=== PATIENT | female | born 1975 | race Caucasian/White ===

== ENCOUNTER 2020-04-19 11:59 | Emergency (ER) | payer BC ==
[~2020-04-19] VITALS: Ht 160 cm; Wt 90.7 kg
[2020-04-19 12:15] VITALS: BP_SYST 119
[2020-04-19] MEDS ORDERED: MORPHINE 4 MG/ML INJ. SYRINGE IVP ONE (13:30)
[2020-04-19] MEDS ORDERED: ONDANSETRON HCL 4 MG/2 ML VIAL IVP ONE (13:30)
[2020-04-19] MEDS ORDERED: NACL 0.9% 1,000 ML IV ONE (13:30)
[2020-04-19 14:24] LABS: BASOPHILS # (AUTO) 0.1 K/uL (0.0-0.2); BASOPHILS % (AUTO) 0.7 % (0.0-2.0); EOSINOPHILS # (AUTO) 0.2 K/uL (0.0-0.4); EOSINOPHILS % (AUTO) 2.2 % (0.0-4.0); HEMATOCRIT 40.2 % (36-48); HEMOGLOBIN 13.8 g/dL (12.0-16.0); LYMPHOCYTES # (AUTO) 2.7 K/uL (1.0-5.5); LYMPHOCYTES % (AUTO) 36.2 % (20.5-51.5); MEAN CORPUSCULAR HEMOGLOBIN 30 pg (27-31); MEAN CORPUSCULAR HGB CONC 34 % (32-36); MEAN CORPUSCULAR VOLUME 88 fL (79.0-98.0); MONOCYTES # (AUTO) 0.7 K/uL (0.0-1.0); MONOCYTES % (AUTO) 9.3 % (1.7-9.3); NEUTROPHILS # (AUTO) 3.9 K/uL (1.8-7.7); NEUTROPHILS % (AUTO) 51.6 % (40.0-70.0); PLATELET COUNT (AUTO) 286 K/uL (130-430); RED BLOOD CELL COUNT(AUTO) 4.58 MIL/uL (4.2-6.2); RED CELL DISTRIBUTION WIDTH 13.9 % (9.0-15.0); WHITE BLOOD COUNT (AUTO) 7.5 K/uL (4.8-10.8)
[2020-04-19 14:52] LABS: ALBUMIN 3.9 g/dL (3.4-4.8); CALCIUM 9.3 mg/dL (8.4-11.0); CREATININE 0.88 mg/dL (0.55-1.30); POTASSIUM 3.3 mmol/L (3.5-5.1); TOTAL BILIRUBIN 0.3 mg/dL (0.0-1.0)
[2020-04-19 14:59] LABS: BILIRUBIN,URINE NEGATIVE (NEGATIVE); BLOOD, URINE NEGATIVE (NEGATIVE); CLARITY/URINE SL CLOUDY (CLEAR); COLOR,URINE YELLOW (YELLOW); GLUCOSE,URINE NEGATIVE (NEGATIVE); KETONES,URINE NEGATIVE (NEGATIVE); LEUKOCYTE ESTERASE ,URINE NEGATIVE (NEGATIVE); NITRITE, URINE NEGATIVE (NEGATIVE); PROTEIN URINE NEGATIVE (NEGATIVE); UROBILINOGEN,URINE 0.2 (0.2-1.0)
[2020-04-19] MEDS ORDERED: MAG HYDROX/AL HYDROX/SIMETH 30 ML, DICYCLOMINE HCL 20 MG, LIDOCAINE VISCOUS 2% 15ML (PO... PO ONE ×3 (15:15)
[2020-04-19] MEDS ORDERED: KETOROLAC TROMETHAMINE 30 MG VIAL IVP ONE (15:15)
[2020-04-19 15:24] LABS: BACTERIA,URINE None Seen /HPF (None Seen); RBC,URINE 0-3 /HPF (0-3); WBC,URINE 0-3 /HPF (0-3)
[2020-04-19] MEDS ORDERED: PRO40 PO (16:46)
[2020-04-19 17:48] VITALS: BP_SYST 118
== END 2020-04-19 17:48 | disposition home or self-care (01) ==
LOC: SED 11:59
DX: R10.12 Left upper quadrant pain (principal)
CPT/HCPCS: 36415; 74176; 80053; 81000; 81025; 83690; 85025; 96361; 96374; 96375; 99284; J1885; J2001; J2270; J2405; J7030

== ENCOUNTER 2020-10-14 10:31 | Emergency (ER) | payer BC ==
[~2020-10-14] VITALS: Ht 160 cm; Wt 90.7 kg
[~2020-10-14 10:31] MED LIST: PRO40 PO
[2020-10-14 10:47] VITALS: BP_SYST 11
[2020-10-14] MEDS ORDERED: IBUP-1969 PO (13:34)
[2020-10-14] MEDS ORDERED: HYDR-3917 PO (13:34)
[2020-10-14 13:47] VITALS: BP_SYST 11
== END 2020-10-14 13:47 | disposition home or self-care (01) ==
LOC: SED 10:31
DX: S60.221A Contusion of right hand, initial encounter (principal); I10 Essential (primary) hypertension; K21.9 Gastro-esophageal reflux disease without esophagitis; Z79.899 Other long term (current) drug therapy; W22.8XXA Striking against or struck by other objects, initial encounter; Y93.89 Activity, other specified; Y92.89 Other specified places as the place of occurrence of the external cause; Y99.8 Other external cause status
CPT/HCPCS: 99283

== ENCOUNTER 2021-08-09 11:13 | Emergency (ER) | payer BC ==
[~2021-08-09] VITALS: Ht 160 cm; Wt 95.3 kg
[~2021-08-09 11:13] MED LIST changes: +HYDR-3917 PO; +IBUP-1969 PO
--- NOTE | 2021-08-09 11:19 | NUR ---
DR DAMON IN TENT FOR EXAM.
--- NOTE | 2021-08-09 11:23 | NUR ---
Patient is complaining of 3 days of cough congestion sore throat over the last 3 days she states that she has been vaccinated however she suspects COVID infection and says she has been around friends who tested positive patient denies phlegm production or difficulty breathing also denies history of asthma.
[2021-08-09 11:24] VITALS: BP_SYST 105
[2021-08-09] MEDS ORDERED: NIRM1TAB PO (12:06)
[2021-08-09] MEDS ORDERED: IBUP-1969 PO (12:06)
--- NOTE | 2021-08-09 12:26 | NUR ---
Patient given written and verbal discharge instructions and verbalizes understanding. ER MD discussed with patient the results and treatment provided. Patient in stable condition. ID arm band removed. Rx of ibu[rofen, nirmatrelvir, ritonavir given. Patient educated on pain management and to follow up with PMD. Pain Scale . Opportunity for questions provided and answered. Medication side effect fact sheet provided.
[2021-08-09 12:43] VITALS: BP_SYST 122
== END 2021-08-09 12:26 | disposition home or self-care (01) ==
LOC: SED 11:13
DX: U07.1 COVID-19 (principal); J40 Bronchitis, not specified as acute or chronic; R05.9 Cough, unspecified; R09.81 Nasal congestion; I10 Essential (primary) hypertension; K21.9 Gastro-esophageal reflux disease without esophagitis; Z79.899 Other long term (current) drug therapy
CPT/HCPCS: 36415; 71045; 99284

== ENCOUNTER 2022-09-10 09:17 | Emergency (ER) | payer BC ==
[~2022-09-10] VITALS: Ht 160 cm; Wt 98.9 kg
[2022-09-10 09:17] VITALS: BP_SYST 122; PULSE 77; RESP 18; TEMP 97.8; O2SAT 98
[~2022-09-10 09:17] MED LIST changes: +NIRM1TAB PO
[2022-09-10] MEDS ORDERED: KETOROLAC TROMETHAMINE 30 MG VIAL IVP ONE (10:00)
[2022-09-10] MEDS ORDERED: NACL 0.9% 1,000 ML IV ONE (10:00)
[2022-09-10 10:16] LABS: BASOPHILS # (AUTO) 0.1 K/uL (0.0-0.2); BASOPHILS % (AUTO) 0.9 % (0.0-2.0); EOSINOPHILS # (AUTO) 0.2 K/uL (0.0-0.4); EOSINOPHILS % (AUTO) 2.7 % (0.0-4.0); HEMATOCRIT 38.4 % (36-48); HEMOGLOBIN 13.1 g/dL (12.0-16.0); LYMPHOCYTES # (AUTO) 2.2 K/uL (1.0-5.5); LYMPHOCYTES % (AUTO) 30.7 % (20.5-51.5); MEAN CORPUSCULAR HEMOGLOBIN 30 pg (27-31); MEAN CORPUSCULAR HGB CONC 34 % (32-36); MEAN CORPUSCULAR VOLUME 88 fL (79.0-98.0); MONOCYTES # (AUTO) 0.7 K/uL (0.0-1.0); MONOCYTES % (AUTO) 9.3 % (1.7-9.3); NEUTROPHILS # (AUTO) 4.1 K/uL (1.8-7.7); NEUTROPHILS % (AUTO) 56.4 % (40.0-70.0); PLATELET COUNT (AUTO) 279 K/uL (130-430); RED BLOOD CELL COUNT(AUTO) 4.35 MIL/uL (4.2-6.2); WHITE BLOOD COUNT (AUTO) 7.3 K/uL (4.8-10.8)
[2022-09-10 10:32] LABS: CALCIUM 8.8 mg/dL (8.4-11.0); CREATININE 0.75 mg/dL (0.55-1.30)
[2022-09-10 10:36] LABS: ALBUMIN 3.6 g/dL (3.4-4.8); TOTAL BILIRUBIN 0.5 mg/dL (0.0-1.0)
[2022-09-10 11:17] LABS: BILIRUBIN,URINE NEGATIVE (NEGATIVE); BLOOD, URINE NEGATIVE (NEGATIVE); CLARITY/URINE CLEAR (CLEAR); COLOR,URINE YELLOW (YELLOW); GLUCOSE,URINE NEGATIVE (NEGATIVE); KETONES,URINE NEGATIVE (NEGATIVE); LEUKOCYTE ESTERASE ,URINE NEGATIVE (NEGATIVE); NITRITE, URINE NEGATIVE (NEGATIVE); PH,URINE 6.5 (5.0-8.0); PROTEIN URINE NEGATIVE (NEGATIVE); UROBILINOGEN,URINE 0.2 (0.2-1.0)
[2022-09-10] MEDS ORDERED: MAG HYDROX/AL HYDROX/SIMETH 30 ML, DICYCLOMINE HCL 20 MG, LIDOCAINE VISCOUS 2% 15ML (PO... PO ONE ×3 (12:45)
[2022-09-10] MEDS ORDERED: MAG-AL HYDROX/SIMETH 30 ML UDC ONE (12:56)
[2022-09-10] MEDS ORDERED: DICYCLOMINE HCL 10 MG/5 ML SOLUTION ONE (12:56)
[2022-09-10] MEDS ORDERED: IBUP-1971 PO (14:26)
[2022-09-10] MEDS ORDERED: ANT30 PO (14:54)
[2022-09-10 15:35] VITALS: BP_SYST 122; PULSE 77; RESP 18; TEMP 97.8; O2SAT 98
== END 2022-09-10 15:36 | disposition home or self-care (01) ==
LOC: SED 09:17
DX: R91.1 Solitary pulmonary nodule (principal); R10.13 Epigastric pain; R10.11 Right upper quadrant pain; R10.12 Left upper quadrant pain; K21.9 Gastro-esophageal reflux disease without esophagitis; I10 Essential (primary) hypertension; Z79.899 Other long term (current) drug therapy
CPT/HCPCS: 99285; 71260; 96374; 71045; 96361; 80053; 83690; 85025; 36415; 76376; 74177; 81003; J1885; Q9967; J7030; 93005

== ENCOUNTER 2023-10-10 07:09 | Emergency (ER) | payer BC, OTHER ==
[~2023-10-10] VITALS: Ht 160 cm; Wt 90.7 kg
[~2023-10-10 07:09] MED LIST changes: +ANT30 PO; +IBUP-1971 PO
[2023-10-10 07:18] VITALS: BP_SYST 151; PULSE 85; RESP 18; TEMP 98.3; O2SAT 98
[2023-10-10] MEDS: LORATADINE 10 MG TABLET PO ONE (08:18)
[2023-10-10] MEDS ORDERED: DOXYCYCLINE HYCLATE 100 MG VIAL IV ONE (08:25)
[2023-10-10] MEDS ORDERED: CEFTAZIDIME 2 GM VIAL ONE ×2 (08:29→08:56)
[2023-10-10] MEDS: METHYLPREDNISOLONE SOD SUCC 40 MG/ML VIAL IVP ONE (08:44)
[2023-10-10] MEDS: ONDANSETRON HCL 4 MG/2 ML VIAL IVP ONE (08:44)
[2023-10-10] MEDS: MORPHINE 4 MG INJ. 4 MG/ML VIAL IVP ONE (08:45)
[2023-10-10] MEDS: DOXYCYCLINE HYCLATE 100 MG in D5W 100 ML IV ONE (08:45)
[2023-10-10 08:53] LABS: BASOPHILS % (AUTO) 0.6 % (0.0-2.0); EOSINOPHILS # (AUTO) 0.1 K/uL (0.0-0.4); EOSINOPHILS % (AUTO) 1.5 % (0.0-4.0); HEMOGLOBIN 12.3 g/dL (12.0-16.0); LYMPHOCYTES # (AUTO) 1.9 K/uL (1.0-5.5); LYMPHOCYTES % (AUTO) 25.1 % (20.5-51.5); MEAN CORPUSCULAR HEMOGLOBIN 30 pg (27-31); MEAN CORPUSCULAR HGB CONC 34 % (32-36); MEAN CORPUSCULAR VOLUME 88 fL (79.0-98.0); MONOCYTES # (AUTO) 0.7 K/uL (0.0-1.0); MONOCYTES % (AUTO) 9.9 % (1.7-9.3); NEUTROPHILS # (AUTO) 4.6 K/uL (1.8-7.7); NEUTROPHILS % (AUTO) 62.9 % (40.0-70.0); PLATELET COUNT (AUTO) 259 K/uL (130-430); RED BLOOD CELL COUNT(AUTO) 4.09 MIL/uL (4.2-6.2); RED CELL DISTRIBUTION WIDTH 14.4 % (9.0-15.0); WHITE BLOOD COUNT (AUTO) 7.4 K/uL (4.8-10.8)
[2023-10-10 09:22] LABS: ALBUMIN 3.3 g/dL (3.4-4.8); BILIRUBIN,DIRECT 0.1 mg/dL (0.0-0.3); CREATININE 0.84 mg/dL (0.55-1.30); POTASSIUM 3.7 mmol/L (3.5-5.1); TOTAL BILIRUBIN 0.4 mg/dL (0.0-1.0); TOTAL PROTEIN, SERUM 7.3 g/dL (6.4-8.3)
[2023-10-10] MEDS: CEFTAZIDIME 2 GM in D5W 100 ML IV ONE (09:32)
[2023-10-10] MEDS ORDERED: ACET-2634 PO (10:15)
[2023-10-10] MEDS ORDERED: IBUP-1969 PO (10:15)
[2023-10-10] MEDS ORDERED: CEPH250C PO (10:15)
[2023-10-10] MEDS ORDERED: DOXY100C5 PO (10:15)
[2023-10-10] MEDS ORDERED: PRED20TA PO (10:15)
[2023-10-10] MEDS ORDERED: LORA10TA7 PO (10:15)
[2023-10-10 10:49] VITALS: BP_SYST 131; PULSE 87; RESP 18; TEMP 97.9; O2SAT 94
== END 2023-10-10 10:50 | disposition home or self-care (01) ==
LOC: SED 07:09
DX: K13.0 Diseases of lips (principal); K21.9 Gastro-esophageal reflux disease without esophagitis; I10 Essential (primary) hypertension; Z88.8 Allergy status to other drugs, medicaments and biological substances
CPT/HCPCS: 80076; 80048; 85025; 87040; 36415; 99284; 96365; 96367; 96375; J0713; J3490; J1030; J2405; J2270